=== PATIENT | male | born 1995 | race Native Hawaiian/Other Pacific Islander ===

== ENCOUNTER 2017-07-03 18:57 | Emergency (ER) | payer SELFPAY ==
[~2017-07-03] VITALS: Ht 165.1 cm; Wt 73.0 kg
[2017-07-03 19:07] VITALS: BP 128/67; PULSE 117; RESP 18; TEMP 98.2; O2SAT 100
--- NOTE | 2017-07-03 19:12 | PD ---
HPI Chief Complaint: Seizure Time Seen by Provider: 19:08 Travel History International Travel<30 days: No Contact w/Intl Traveler<30days: No Traveled to known affect area: No History of Present Illness HPI 21-year-old male with history of seizure disorder presents via EMS for evaluation of a seizure. The patient is a student at [employer]. Prior to arrival he was walking when he had a witnessed generalized tonic-clonic seizure which lasted for 3 minutes. He was postictal upon EMS arrival but is now acting normally. He has lacerations to left cheek and forehead and he is complaining of headache and facial pain secondary to falling. Pain is aching and worse with movement. Denies neck pain, back pain, numbness or tingling or weakness in extremities, blurred vision, nausea or vomiting, chest pain, shortness of breath. Last tetanus vaccination unknown. He reports a history of seizures, prescribed Keppra 500 mg once a day by his neurologist in [place]. He reports that he did not take the Keppra over the past few days because he has been busy and forgot to. Denies any illicit drug use. Denies alcohol use. He has no other complaints. PFS Past Medical History Seizures: Yes Social History Alcohol Use: No Tobacco Use: No Allergies-Medications (Allergen,Severity, Reaction): Coded Allergies: No Known Allergies (Unverified , 07/03/17) Reported Meds & Prescriptions Reported Meds & Active Scripts Active Augmentin (Amoxicillin-Clavulanate) 875-125 Mg Tab 1 Tab PO BID Reported Keppra (Levetiracetam) 500 Mg Tab 500 Mg ONCE Review of Systems Except as stated in HPI: all other systems reviewed are Neg Physical Exam Narrative GENERAL: Pleasant well-developed well-nourished male in no acute distress GCS 15 SKIN: Warm and dry. 2 cm horizontal jagged laceration to left forehead. 2 cm jagged laceration to left cheek. Abrasions to the knees. HEAD: Skin as noted above.. Normocephalic. EYES: Pupils equal and round. No scleral icterus. No injection or drainage. ENT: No nasal bleeding or discharge. Mucous membranes pink and moist. NECK: Trachea midline. No JVD. CARDIOVASCULAR: Regular rate and rhythm. No murmur appreciated. RESPIRATORY: No accessory muscle use. Clear to auscultation. Breath sounds equal bilaterally. GASTROINTESTINAL: Abdomen soft, non-tender, nondistended. Hepatic and splenic margins not palpable. MUSCULOSKELETAL: No obvious deformities. No clubbing. No cyanosis. No edema. There is no tenderness to palpation along the cervical thoracic or lumbar midline spine. The patient maintains full range of motion of the neck and extremities. NEUROLOGICAL: Awake and alert. No obvious cranial nerve deficits. Motor grossly within normal limits. Normal speech. Data Data Last Documented VS Vital Signs Date Time Temp Pulse Resp B/P (MAP) Pulse Ox O2 Delivery O2 Flow Rate FiO2 07/03/17 19:07 98.2 117 18 128/67 (87) 100 Orders Orders Complete Blood Count With Diff (07/03/17 19:08) Basic Metabolic Panel (Bmp) (07/03/17 19:08) Electrocardiogram (07/03/17 ) Ct Brain W/O Iv Contrast(Rout) (07/03/17 ) Blood Glucose (07/03/17 19:08) Ecg Monitoring (07/03/17 19:08) Iv Access Insert/Monitor (07/03/17 19:08) Lorazepam Inj (Ativan Inj) (07/03/17 19:15) Ct Facial Bones W/O Iv Cont (07/03/17 ) Tetanus/Diphtheria Tox Adult (Tetanus/Di (07/03/17 19:15) Levetiracetam Inj (Keppra Inj) (07/03/17 19:15) Magnesium (Mg) (07/03/17 19:08) Labs Laboratory Tests Test 07/03/17 19:20 White Blood Count 12.4 TH/MM3 Red Blood Count 5.10 MIL/MM3 Hemoglobin 15.3 GM/DL Hematocrit 45.8 % Mean Corpuscular Volume 89.7 FL Mean Corpuscular Hemoglobin 30.1 PG Mean Corpuscular Hemoglobin Concent 33.5 % Red Cell Distribution Width 12.3 % Platelet Count 345 TH/MM3 Mean Platelet Volume 7.8 FL Neutrophils (%) (Auto) 63.9 % Lymphocytes (%) (Auto) 26.7 % Monocytes (%) (Auto) 8.6 % Eosinophils (%) (Auto) 0.5 % Basophils (%) (Auto) 0.3 % Neutrophils # (Auto) 7.9 TH/MM3 Lymphocytes # (Auto) 3.3 TH/MM3 Monocytes # (Auto) 1.1 TH/MM3 Eosinophils # (Auto) 0.1 TH/MM3 Basophils # (Auto) 0.0 TH/MM3 CBC Comment DIFF FINAL Differential Comment Blood Urea Nitrogen 15 MG/DL Creatinine 1.25 MG/DL Random Glucose 87 MG/DL Calcium Level 9.3 MG/DL Magnesium Level 2.4 MG/DL Sodium Level 141 MEQ/L Potassium Level 4.1 MEQ/L Chloride Level 106 MEQ/L Carbon Dioxide Level 21.5 MEQ/L Anion Gap 14 MEQ/L Estimat Glomerular Filtration Rate 73 ML/MIN MDM Medical Decision Making Medical Screen Exam Complete: Yes Emergency Medical Condition: Yes Medical Record Reviewed: Yes Differential Diagnosis Medication noncompliance, breakthrough seizure, hyponatremia, hyperglycemia, closed head injury, facial laceration Narrative Course The patient will be given Keppra loading bolus as well as 1 mg of Ativan. Tetanus status updated. The laceration will be repaired with sutures, he verbally consents. Lab work, CT imaging the brain and facial bones has been ordered. CT the face reveals nondisplaced fractures of the nose and left maxillary air cell. The patient was monitored here in the ER for some time with no additional seizure activity. He is encouraged to take his Keppra as prescribed and to follow-up with his neurologist. He will be referred as an outpatient to a orofacial specialist in regards to his facial fractures. Procedures Procedure Narrative LACERATION LOCATION: Left forehead LENGTH: 2-3 cm NUMBER OF STITCHES/GIOVANNI: 9 REPAIR: The area of the laceration was prepped with Betadine and sterilely draped. The laceration was infiltrated with 1% lidocaine with epinephrine. The wound was copiously irrigated and explored without evidence of foreign body , tendon injury or neurovascular injury. The wound was closed using 6-0 Prolene simple interrupted this was a single layer repair. A sterile dressing was applied. The patient was advised to keep the dressing clean and dry. Patient tolerated the procedure well. LACERATION LOCATION: Left cheek LENGTH: 2 cm NUMBER OF STITCHES/GIOVANNI: 6 REPAIR: The area of the laceration was prepped with Betadine and sterilely draped. The laceration was infiltrated with 1% lidocaine with epinephrine. The wound was copiously irrigated and explored without evidence of foreign body , tendon injury or neurovascular injury. The wound was closed using 6-0 Prolene simple interrupted. This was a single layer repair. A sterile dressing was applied. The patient was advised to keep the dressing clean and dry. Patient tolerated the procedure well. Diagnosis Primary Impression: Seizure Additional Impressions: Face lacerations Facial fracture Referrals: Gómez Juarez DMD Neurologist Additional Instructions: Please provide the patient a copy of his CT facial bones report prior to discharge. Medication as prescribed. Take your Keppra as prescribed. Follow-up with your neurologist. Follow-up with a facial specialist such as Dr. Juarez in the next week, call to make an appointment. Return here or to [facility] in 5-7 days for suture removal. Wash the wounds 2-3 times a day with soap and water and apply antibiotic cream. Med/Other Pt SpecificInfo: Prescription(s) given, Wound Care Scripts Amoxicillin-Clavulanate (Augmentin) 875-125 Mg Tab 1 TAB PO BID for Infection, #10 TAB 0 Refills Prov: Oral Carl MD 07/03/17 Disposition: 01 DISCHARGE HOME Condition: Stable Yimi Hanna Jul 03, 2017 19:12
[2017-07-03] MEDS ORDERED: LORazepam 2 MG/ML VIAL IVS ONE (19:15)
[2017-07-03] MEDS ORDERED: TETANUS/DIPHTHERIA TOXOID ADULT 0.5 ML VIAL IM ONE (19:15)
[2017-07-03] MEDS ORDERED: levETIRAcetam INJ 100 ML IV ONE (19:15)
[2017-07-03] MEDS ORDERED: LEVE500 (19:17)
--- NOTE | 2017-07-03 19:29 | RADRPT ---
EXAM DATE/TIME: 07/03/2017 19:20 [facility] COMPARISON: No previous studies available for comparison. INDICATIONS : Trauma; seizure, fall. RADIATION DOSE: 56.35 CTDIvol (mGy) MEDICAL HISTORY : Seizures. SURGICAL HISTORY : None. ENCOUNTER: Initial ACUITY: 1 day PAIN SCALE: 5/10 LOCATION: cranial TECHNIQUE: Multiple contiguous axial images were obtained of the head. Using automated exposure control and adj ustment of the mA and/or kV according to patient size, radiation dose was kept as low as reasonably a chievable to obtain optimal diagnostic quality images. DICOM format image data is available electro nically for review and comparison. FINDINGS: CEREBRUM: The ventricles are normal for age. No evidence of midline shift, mass lesion, hemorrhage or acute in farction. No extra-axial fluid collections are seen. POSTERIOR FOSSA: The cerebellum and brainstem are intact. The 4th ventricle is midline. The cerebellopontine angle i s unremarkable. EXTRACRANIAL: The visualized portion of the orbits is intact. SKULL: The calvaria is intact. No evidence of skull fracture. CONCLUSION: Negative noncontrast head CT. Jhonatan Bowling MD on July 03, 2017 at 19:26 Board Certified Radiologist. This report was verified electronically.
[2017-07-03 19:31] LABS: AUTOMATED NEUTROPHIL # 7.9 TH/MM3 (1.8-7.7); BASOPHIL % 0.3 % (0.0-2.0); EOSINOPHIL # 0.1 TH/MM3 (0-0.4); EOSINOPHIL % 0.5 % (0.0-4.0); HEMATOCRIT 45.8 % (39.0-51.0); HEMOGLOBIN 15.3 GM/DL (13.0-17.0); LYMPH % 26.7 % (9.0-44.0); LYMPHOCYTE # 3.3 TH/MM3 (1.0-4.8); MEAN CELL VOLUME 89.7 FL (80.0-100.0); MEAN CORPUSCULAR HEMOGLOBIN 30.1 PG (27.0-34.0); MEAN CORPUSCULAR HGB CONC 33.5 % (32.0-36.0); MEAN PLATELET VOLUME 7.8 FL (7.0-11.0); MONO % 8.6 % (0.0-8.0); MONOCYTE # 1.1 TH/MM3 (0-0.9); NEUT % 63.9 % (16.0-70.0); PLATELET COUNT 345 TH/MM3 (150-450); RED CELL DISTRIBUTION WIDTH 12.3 % (11.6-17.2); WHITE BLOOD COUNT 12.4 TH/MM3 (4.0-11.0)
--- NOTE | 2017-07-03 19:40 | RADRPT ---
EXAM DATE/TIME: 07/03/2017 19:20 [facility] COMPARISON: No previous studies available for comparison. INDICATIONS : Trauma; seizure, fall. RADIATION DOSE: 21.05 CTDIvol (mGy) MEDICAL HISTORY : Seizures. SURGICAL HISTORY : None. ENCOUNTER: Initial ACUITY: 1 day PAIN SCORE: 5/10 LOCATION: Bilateral facial TECHNIQUE: Volumetric scanning of the facial bones was performed. Using automated exposure control and adjustme nt of the mA and/or kV according to patient size, radiation dose was kept as low as reasonably achiev able to obtain optimal diagnostic quality images. DICOM format image data is available electronicall y for review and comparison. FINDINGS: ORBITS: The orbital and infraorbital osseous structures are intact. The retroconal structures have a normal configuration. No radiopaque foreign bodies are seen. NASAL BONE: Minimally displaced fracture of the tip of the nasion and both sides of the nasal arch. Nose is devia [place] to the left. ZYGOMATIC ARCHES: Symmetric without evidence of fracture. SINUSES: There is mucoperiosteal thickening and fluid in the left maxillary air cell NASAL CAVITY: The nasal septum is rightward convexed bowed. The lacrimal ducts are intact. SOFT TISSUES: Soft tissue hematoma in the left supraorbital region. Post septal soft tissues are normal. INTRACRANIAL: No intracranial air seen. CRIBIFORM PLATE: Grossly intact. CONCLUSION: Nondisplaced fractures of the nose and left maxillary air cell. Pre-septal soft tissue swelling of th e left orbit. Globes are intact. Post septal soft tissues are normal. Jhonatan Bowling MD on July 03, 2017 at 19:32 Board Certified Radiologist. This report was verified electronically.
[2017-07-03 19:50] LABS: BICARBONATE 21.5 MEQ/L (21.0-32.0); CALCIUM 9.3 MG/DL (8.5-10.1); CREATININE 1.25 MG/DL (0.60-1.30); MAGNESIUM 2.4 MG/DL (1.5-2.5)
[2017-07-03] MEDS ORDERED: AUGM875T3 PO (20:20)
--- NOTE | 2017-07-03 21:55 | EKG ---
Date Performed: 07/03/2017 Time Performed: 19:10:16 PTAGE: 21 years EKG: SINUS TACHYCARDIA ABNORMAL RHYTHM ECG NO PREVIOUS TRACING DOCTOR: Rayshawn Lagos Interpretating Date/Time 07/03/2017 21:53:03
== END 2017-07-03 22:15 | disposition home or self-care (01) ==
LOC: NEPC 18:57
DX: G40.409 Other generalized epilepsy and epileptic syndromes, not intractable, without status epilepticus (principal); S01.81XA Laceration without foreign body of other part of head, initial encounter; S01.412A Laceration without foreign body of left cheek and temporomandibular area, initial encounter; S02.2XXA Fracture of nasal bones, initial encounter for closed fracture; S02.40DA Maxillary fracture, left side, initial encounter for closed fracture; R00.0 Tachycardia, unspecified; S80.219A Abrasion, unspecified knee, initial encounter; W19.XXXA Unspecified fall, initial encounter; Y93.01 Activity, walking, marching and hiking; Z23 Encounter for immunization; Z79.899 Other long term (current) drug therapy
CPT/HCPCS: 12013; 70450; 70486; 80048; 83735; 85025; 90471; 90714; 93005; 96365; 96375; 99285; J1953; J2060